=== PATIENT | female | born 1935 | race Caucasian/White ===

== ENCOUNTER 2021-11-18 15:00 | Inpatient (IN) | payer MEDICARE, OTHER ==
[~2021-11-18] VITALS: Ht 170.2 cm; Wt 59.6 kg
[2021-11-18 15:30] LABS: BASOPHIL 1.1 % (0-2); EOSINOPHIL 1.7 % (0-7); HCT 33.7 % (37.0-47.0); HGB 11.2 g/dl (12.5-16.0); LYMPHOCYTE 13.6 % (15-48); MCH 29.2 pg (25.0-31.0); MCHC 33.2 g/dL (32.0-36.0); MCV 87.8 fL (78.0-100.0); MONOCYTE 14.4 % (0-12); MPV 10.3 fL (6.0-9.5); NEUTROPHIL 68.9 % (41-80); NRBC 0; PLT 342 K/uL (150-400); RBC 3.84 M/uL (4.20-5.40); RDW 14.9 % (11.5-14.0); WBC 7.3 K/uL (4.0-10.5)
[2021-11-18 15:47] LABS: ALBUMIN 3.7 g/dL (3.4-5.0); BILIRUBIN - TOTAL 0.7 mg/dL (0.2-1.0); BUN/CREAT RATIO (CALC) 30.9 RATIO; CREATININE 0.55 mg/dL (0.51-0.95); GLOBULIN (CALCULATION) 3.3 g/dL; POTASSIUM 4.4 mmol/L (3.5-5.1)
[2021-11-18 16:54] LABS: CORONAVIRUS 2019 SARS-COV-2 NEGATIVE (NEGATIVE); INFLUENZA A NAA NEGATIVE (NEGATIVE)
[2021-11-18 17:14] LABS: INR 1.34 (0.9-1.2); PROTHROMBIN TIME 15.9 SECONDS (11.8-13.4); PTT 32.8 SECONDS (24.4-34.7)
[2021-11-18] MEDS ORDERED: JANTOVEN1 MG PO (18:19)
[2021-11-18] MEDS ORDERED: DIGITEK125 MCG PO (18:20)
[2021-11-18] MEDS ORDERED: TAPAZOLE5 MG PO (18:21)
[2021-11-18] MEDS ORDERED: CARDIZEM60 MG PO ×2 (18:24→20:49)
[2021-11-18] MEDS ORDERED: AMIODARONE HCL200 MG PO (18:24)
[2021-11-18] MEDS ORDERED: HYDRALAZINE25 MG PO ×2 (18:26→20:50)
[2021-11-18] MEDS ORDERED: PROPYLTHIOURACIL PO (18:34)
[2021-11-18] MEDS ORDERED: PROTONIX 40MG T40 MG PO ×2 (18:35→20:50)
[2021-11-18] MEDS ORDERED: JANTOVEN10 MG PO (20:49)
[2021-11-18] MEDS ORDERED: COZAAR50 MG PO ×2 (20:50)
[2021-11-18] MEDS ORDERED: LASIX20 MG PO (20:50)
[2021-11-18] MEDS ORDERED: OMEGA 3 FISH O1 EACH PO (20:51)
[2021-11-18] MEDS ORDERED: VITAMIN D325 MC2 PO (20:51)
[2021-11-18] MEDS ORDERED: ASPIRIN EC81 MG PO (20:51)
[2021-11-18] MEDS ORDERED: VITAMIN B-650 MG PO (20:52)
[2021-11-19 05:43] LABS: BASOPHIL 1.5 % (0-2); EOSINOPHIL 4.2 % (0-7); HCT 30.2 % (37.0-47.0); HGB 10.1 g/dl (12.5-16.0); LYMPHOCYTE 20.8 % (15-48); MCH 29.2 pg (25.0-31.0); MCHC 33.4 g/dL (32.0-36.0); MCV 87.3 fL (78.0-100.0); MPV 10.3 fL (6.0-9.5); NEUTROPHIL 54.3 % (41-80); NRBC 0; PLT 275 K/uL (150-400); RBC 3.46 M/uL (4.20-5.40); RDW 14.8 % (11.5-14.0); RETICULOCYTE COUNT 1.7 % (1.0-2.0); WBC 4.6 K/uL (4.0-10.5)
[2021-11-19 05:53] LABS: INR 1.38 (0.9-1.2); PROTHROMBIN TIME 16.3 SECONDS (11.8-13.4)
[2021-11-19 06:00] LABS: IRON % SATURATION 11.2 %SAT (20-50)
[2021-11-19 06:23] LABS: BUN/CREAT RATIO (CALC) 25.4 RATIO; CREATININE 0.59 mg/dL (0.51-0.95); MAGNESIUM 1.6 mg/dL (1.8-2.4)
--- NOTE | 2021-11-19 12:37 | NUR ---
1220 REPORT GIVEN TO Pawel AT [facility]. PATIENT TRANSPORTED BY ALS ACCOMPANIED BY PARAMEDICS. IV INTACT MONITOR REMOVED. VERBALIZED AN UNDERSTANDING OF WHY BEING TRANSFERRED.
== END 2021-11-19 12:20 | disposition other institution (70) | DRG 291 ==
LOC: FER 15:00 → FTCU 17:21
PROVIDERS: Internal Medicine; Nurse Practitioner Acute Care; ADMIT Internal Medicine
DX: I11.0 Hypertensive heart disease with heart failure (principal); I50.33 Acute on chronic diastolic (congestive) heart failure; J96.01 Acute respiratory failure with hypoxia; E43 Unspecified severe protein-calorie malnutrition; E87.1 Hypo-osmolality and hyponatremia; Z20.822 Contact with and (suspected) exposure to COVID-19; E11.9 Type 2 diabetes mellitus without complications; D64.9 Anemia, unspecified; I48.0 Paroxysmal atrial fibrillation; E78.5 Hyperlipidemia, unspecified; I25.10 Atherosclerotic heart disease of native coronary artery without angina pectoris; I27.20 Pulmonary hypertension, unspecified; I08.3 Combined rheumatic disorders of mitral, aortic and tricuspid valves; I49.5 Sick sinus syndrome; Z96.652 Presence of left artificial knee joint; Z95.0 Presence of cardiac pacemaker; Z85.3 Personal history of malignant neoplasm of breast; Z85.42 Personal history of malignant neoplasm of other parts of uterus; Z68.20 Body mass index [BMI] 20.0-20.9, adult; Z85.068 Personal history of other malignant neoplasm of small intestine; Z86.16 Personal history of COVID-19; Z90.49 Acquired absence of other specified parts of digestive tract; Z90.12 Acquired absence of left breast and nipple; Z92.3 Personal history of irradiation; Z85.828 Personal history of other malignant neoplasm of skin; Z79.01 Long term (current) use of anticoagulants; Z87.440 Personal history of urinary (tract) infections; Z87.891 Personal history of nicotine dependence
CPT/HCPCS: 36415; 36600; 71045; 80048; 80053; 82728; 82803; 82962; 83036; 83540; 83550; 83735; 83880; 84484; 85025; 85610; 85730; 93005; 94760; 94762; U0002